=== PATIENT | female | born 1950 | race Caucasian/White ===

== ENCOUNTER 2018-09-13 12:28 | Emergency (ER) | payer MEDICARE ==
--- NOTE | 2018-09-13 12:57 | ED ---
Upper Extremity Pain - HPI Summary HPI Summary: The patient is a 68 y/o F presenting to [facility] accompanied by daughter with a chief complaint of gradual onset upper extremity pain that started in the RUE a week ago but has moved to the LUE with pain radiating from the to the fingers starting last night. Since onset, the throbbing pain has been constant, and is currently rated 5/10 in severity. The pain is not aggravated by raising the left arm. She denies CP, palpitations, SOB, nausea, and vomiting. She denies recent fall or trauma. She reports hx of arthritis, but this pain is different than that. She hasn't taken any medications [employer], but she takes Ibuprofen for her arthritis occasionally. 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 - History of Current Complaint Chief Complaint: EDChestPainROMI Stated Complaint: "LEFT ARM PAIN/CONCERNED ABOUT MY HEART" PER PT Time Seen by Provider: 09/13/18 12:44 Hx Obtained From: Patient Mechanism Of Injury: Unknown Onset/Duration: Started Days Ago, Still Present Timing: Lasting Days Severity Initially: Moderate Severity Currently: Moderate Pain Location: Other: - LUE radiating from neck to fingers Character: Throbbing Aggravating Factor(s): Nothing Alleviating Factor(s): Nothing Associated Signs & Symptoms: Positive: Neck Pain, Other - NEGATIVE: palpitations. Negative: Chest Pain, SOB, Nausea, Vomiting - Allergies/Home Medications Allergies/Adverse Reactions: Allergies Allergy/AdvReac Type Severity Reaction Status Date / Time ciprofloxacin Allergy Intermediate Hallucinati Verified 09/13/18 13:25 ons povidone-iodine Allergy Intermediate Rash And Verified 09/13/18 13:25 [From Betadine] Itching soap [From Betadine] Allergy Intermediate Rash And Verified 09/13/18 13:25 Itching Penicillins Allergy Itching Verified 09/13/18 13:25 PMH/Surg Hx/FS Hx/Imm Hx Endocrine/Hematology History: Denies: Hx Anticoagulant Therapy, Hx Diabetes Cardiovascular History: Reports: Hx Angina, Hx Hypercholesterolemia, Hx Hypertension, Hx Valvular Heart Disease - MURMUR Denies: Hx Coronary Artery Disease, Hx Myocardial Infarction, Hx Pacemaker/ ICD Respiratory History: Reports: Hx Asthma, Hx Pneumonia GI History: Reports: Hx Hiatal Hernia Musculoskeletal History: Reports: Hx Arthritis Sensory History: Reports: Hx Contacts or Glasses, Hx Deafness - Left ear deafness Denies: Hx Hearing Aid Opthamlomology History: Reports: Hx Contacts or Glasses Psychiatric History: Denies: Hx Panic Disorder - Cancer History Hx Chemotherapy: No Hx Radiation Therapy: No - Surgical History Surgery Procedure, Year, and Place: TONSILECTOMY; AGE 39; GALLBLADDER REMOVED Hx Anesthesia Reactions: No Infectious Disease History: No Infectious Disease History: Denies: Traveled Outside the [place] in Last 30 Days - Family History Known Family History: Positive: Cardiac Disease - Social History Alcohol Use: None Hx Substance Use: No Substance Use Type: Reports: None Hx Tobacco Use: No Smoking Status (MU): Never Smoked Tobacco Do You Chew or Dip Tobacco: No Have You Chewed or Dipped Tobacco in the LAST YEAR: No Have You Smoked in the Last Year: No Review of Systems Negative: Skin Diaphoresis Negative: Palpitations, Chest Pain Negative: Shortness Of Breath Negative: Vomiting, Nausea Positive: Other - LUE pain radiating from neck to fingertips All Other Systems Reviewed And Are Negative: Yes Physical Exam - Summary Physical Exam Summary: VITAL SIGNS: Reviewed. GENERAL: Patient is a well-developed and nourished female who is lying comfortable in the stretcher. Patient is not in any acute respiratory distress. HEAD AND FACE: No signs of trauma. No ecchymosis, hematomas or skull depressions. No sinus tenderness. EYES: PERRLA, EOMI x 2, No injected conjunctiva, no nystagmus. EARS: Hearing grossly intact. Ear canals and tympanic membranes are within normal limits. MOUTH: Oropharynx within normal limits. NECK: Supple, trachea is midline, no adenopathy, no JVD, no carotid bruit, no c- spine tenderness, neck with full ROM. CHEST: Symmetric, no tenderness at palpation LUNGS: Clear to auscultation bilaterally. No wheezing or crackles. CVS: Regular rate and rhythm, S1 and S2 present, no murmurs or gallops appreciated. ABDOMEN: Soft, non-tender. No signs of distention. No rebound no guarding, and no masses palpated. Bowel sounds are normal. EXTREMITIES: FROM in all major joints, no edema, no cyanosis or clubbing. NEURO: Alert and oriented x 3. No acute neurological deficits. Speech is normal and follows commands. SKIN: Dry and warm. Triage Information Reviewed: Yes Vital Signs On Initial Exam: Initial Vitals Temp Pulse Resp BP Pulse Ox 98.1 F 60 19 189/78 96 09/13/18 12:33 09/13/18 12:33 09/13/18 12:33 09/13/18 12:33 09/13/18 12:33 Vital Signs Reviewed: Yes Diagnostics - Vital Signs Vital Signs Temp Pulse Resp BP Pulse Ox 09/13/18 12:33 98.1 F 60 19 189/78 96 - Laboratory Result Diagrams: 09/13/18 14:27 09/13/18 14:27 Lab Statement: Any lab studies that have been ordered have been reviewed, and results considered in the medical decision making process. - Radiology CXR Radiology Interpretation Completed By: Radiologist Summary of Radiographic Findings: Mild cardiomegaly. ED physician has reviewed this report. - EKG 1241 Cardiac Rate: Bradycardia - 56 BPM EKG Rhythm: Sinus Bradycardia Summary of EKG Findings: Nml axis, no ST elevations Re-Evaluation - Re-Evaluation First Eval Re-Evaluation Time: 17:10 Comment: I discussed the findings and discharge with the patient. Course/Dx - Course Assessment/Plan: The patient is a 68 y/o F presenting to [facility] accompanied by daughter with a chief complaint of gradual onset upper extremity pain that started in the RUE a week ago but has moved to the LUE with pain radiating from the to the fingers starting last night. Since onset, the throbbing pain has been constant, and is currently rated 5/10 in severity. The pain is not aggravated by raising the left arm. She denies CP, palpitations, SOB, nausea, and vomiting. She denies recent fall or trauma. She reports hx of arthritis, but this pain is different than that. She hasn't taken any medications [employer], but she takes Ibuprofen for her arthritis occasionally. 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 Blood test results without any significant abnormality except for creatinine of 1.05, glucose of 112, and BNP of 103. Chest x-ray impression: Mild Cardiomegaly. Two troponins 4 hours apart both at 0.00. The patient was given aspirin, and the symptoms actually subsided. Heart score of 3, therefore there is no suspicion for an acute coronary syndrome. Since the patients symptoms have subsided she will be discharged home with follow-up with primary care physician. I discussed all the findings and test results with the patient. Patient was instructed to return to the emergency room immediately if any of the symptoms return worsens. Plan of care was discussed with the patient and understands and agrees. All questions were answered at patient satisfaction. There were no further complaints or concerns. Lung exam before discharge: CTA B/L. Good air exchange. No wheezing or crackles heard. CVS: S1 and S2 present. No murmurs appreciated. Patient is alert and oriented x 3. Patient is hemodynamically stable. Patient will be discharged home with follow up PCP in the next 2-3 days. - Diagnoses Provider Diagnoses: Atypical chest pain Discharge - Sign-Out/Discharge Documenting (check all that apply): Patient Departure - Patient will be discharged home. Patient Received Moderate/Deep Sedation with Procedure: No - Discharge Plan Condition: Stable Disposition: HOME Patient Education Materials: Chest Pain (DC) Referrals: Salazar Lainez MD [Primary Care Provider] - 3 Days Additional Instructions: Follow up with your primary care provider in 2-3 days. RETURN TO THE EMERGENCY DEPARTMENT FOR ANY NEW OR WORSENING SYMPTOMS. - Billing Disposition and Condition Condition: STABLE Disposition: Home - Attestation Statements Document Initiated by Davion: Yes Documenting Scribe: Meghna French Provider For Whom Davion is Documenting (Include Credential): Dr. Markell Dubon MD Scribe Attestation: Meghna Pinedo scribed for Dr. Markell Dubon MD on 09/13/18 at 1852. Scribe Documentation Reviewed: Yes Provider Attestation: The documentation as recorded by the Meghna perez accurately reflects the service I personally performed and the decisions made by me, Dr. Markell Dubon MD Status of Davion Document: Viewed
[2018-09-13] MEDS ORDERED: Aspirin 81 mg CHEW TAB* 81 MG TAB.CHEW PO ONE (12:59)
[2018-09-13 14:47] LABS: INR 1.07 (0.82-1.09)
[2018-09-13 14:48] LABS: ABS Eosinophils 0.2 10^3/ul (0-0.6); ABS Lymphocytes 1.5 10^3/ul (1.0-4.8); ABS Monocytes 0.6 10^3/ul (0-0.8); ABS Neutrophils 5.7 10^3/ul (1.5-7.7); Eosinophil % 2.9 %; Hematocrit 41 % (35-47); Hemoglobin 13.5 g/dL (12.0-16.0); Lymphocyte % 18.9 %; Mean Corpuscular HGB Conc 33 g/dL (31-36); Mean Corpuscular Hemoglobin 29 pg (27-31); Mean Corpuscular Volume 86 fL (80-97); Mean Platelet Volume 8.3 fL (7.4-10.4); Nucleated Red Blood Cells % 0.1; Platelet Count 275 10^3/uL (150-450); Red Blood Count 4.73 10^6 /uL (3.70-4.87); Red Cell Distribution Width 13 % (10.5-15); White Blood Count 8.1 10^3/uL (3.5-10.8)
[2018-09-13 15:01] LABS: Albumin 3.9 g/dL (3.2-5.2); Albumin/Globulin Ratio 1.3 (1-3); BUN/Creatinine Ratio 16.2 (8-20); Calcium 9.3 mg/dL (8.6-10.3); EGFR African American 62.9 (>60); Globulin 3.1 g/dL (2-4); Potassium 4.1 mmol/L (3.5-5.0); Total Bilirubin 0.5 mg/dL (0.2-1.0)
[2018-09-13 15:29] LABS: Magnesium 1.7 mg/dL (1.9-2.7)
[2018-09-13 15:35] LABS: CKMB ng/mL 2.8 ng/mL (0.6-6.3)
[2018-09-13 15:41] LABS: TSH (Thyroid Stimulating Horm) 3.08 mcIU/mL (0.34-5.60)
[2018-09-13] MEDS ORDERED: Magnesium Oxide TAB* 400 MG PO ONE (16:02)
[2018-09-13 17:27] VITALS: BP 133/74
== END 2018-09-13 17:28 | disposition home or self-care (01) ==
LOC: ED 12:28
DX: R07.89 Other chest pain (principal); M54.2 Cervicalgia; R00.1 Bradycardia, unspecified; I51.7 Cardiomegaly; Z88.1 Allergy status to other antibiotic agents; Z88.0 Allergy status to penicillin; Z91.09 Other allergy status, other than to drugs and biological substances
CPT/HCPCS: 36415; 71045; 80053; 82550; 82553; 83735; 83880; 84443; 84484; 85025; 85610; 86618; 93005; 99283; A9270-GY